=== PATIENT | male | born 1980 | race Caucasian/White ===

== ENCOUNTER 2017-11-03 08:45 | Emergency (ER) | payer OTHER, SELFPAY ==
--- NOTE | 2017-11-03 09:13 | HMH.EDUTC ---
[facility] [place] Disposition Clinical Impression: Bronchitis Disposition: Home, Self-Care Condition on Discharge: Good Instructions: DI for Acute Bronchitis Prescriptions: cephALEXin [Keflex 500mg Cap] 500 mg PO Q6H 10 Days #40 cap methylPREDNISolone [Medrol] 4 mg PO DIRECTED 6 Days #1 tab.ds.pk predniSONE [Prednisone 20mg Tab] 20 mg PO BID 5 Days #10 tab Albuterol Sulfate [Proair Hfa 90mcg/puff Inh] 2 puffs IH Q4HP PRN #1 inh PRN Reason: Shortness Of Breath Or Wheezing Time of Disposition: 09:23 Medical Decision Making - Medical Records Medical records reviewed: Yes: I reviewed the patient's medical records. - Yaya Inquiry Pt receiving controlled substance: No [facility] [place] HPI - General Stated complaint: cough congestion Time Seen by Provider: 11/03/17 09:09 Mode of Arrival: Ambulatory Source of Information: Patient Limitations: No Limitations HEENT Symptoms (Recalled from RN notes): Yes Resp Symptoms (Recalled from RN notes): Yes Skin Symptoms (Recalled from RN notes): No GI/ Symptoms (Recalled from RN notes): No MS Symptoms (Recalled from RN notes): No Card Symptoms (Recalled from RN notes): No Other (Recalled from RN notes): No - History of Present Illness Provider Complaint: Patient has had chest congestion and cough X 4-5 days. Gets similar illness every winter. No fever. Has tried Mucinex DM, Advil Cold and Sinus with some relief. Cough mostly non productive. Mild ear pain and sinus pressure and congestion. Losing voice. No vomiting or diarrhea. Onset (ago): day(s) (4-5) Location: head, chest Radiation: non-radiation Consistency: constant Relieving factors: medication Associated symptoms: cough, malaise Treatments prior to arrival: NSAID - Related Data Previous Rx's Medication Instructions Recorded Albuterol Sulfate [Proair Hfa 2 puffs IH Q4HP PRN #1 inh 11/03/17 90mcg/puff Inh] cephALEXin [Keflex 500mg Cap] 500 mg PO Q6H 10 Days #40 cap 11/03/17 methylPREDNISolone [Medrol] 4 mg PO DIRECTED 6 Days #1 11/03/17 tab.ds.pk predniSONE [Prednisone 20mg 20 mg PO BID 5 Days #10 tab 11/03/17 Tab] ROS Obtained: Yes All systems reviewed & no additional complaints - Constitutional Constitutional: Denies body ache, Denies chills, Denies fever(s) - ENT Ears, Nose, Mouth, and Throat: Reports sinus pressure, Reports sore throat - Respiratory Respiratory: Yes cough Physical Exam - General General appearance: alert, in no apparent distress - Head Head exam: atraumatic, normocephalic, normal inspection - Eye Eye exam: Present: normal appearance, PERRL, EOMI - ENT ENT exam: Present: normal exam, normal oropharynx, mucous membranes moist, TM's normal bilaterally, normal external ear exam - Neck Neck exam: Present: normal inspection, full ROM, trachea midline. Absent: meningismus, lymphadenopathy - Chest Chest inspection: Present: normal inspection, symmetric chest wall rise. Absent: tenderness - Respiratory Respiratory exam: Present: wheezes. Absent: respiratory distress - Cardiovascular Cardiovascular exam: Present: regular rate, normal rhythm. Absent: JVD - Abdominal Exam Abdominal exam: Present: soft, normal bowel sounds. Absent: distention, tenderness, guarding - Extremities Exam Extremities exam: Present: normal inspection, full ROM, normal capillary refill. Absent: calf tenderness - Back Exam Back exam: Present: normal inspection. Absent: tenderness - Neurological Exam Neurological exam: Present: alert, oriented X3 - Psychiatric Psychiatric exam: Present: normal affect, normal mood - Skin Skin exam: Present: warm, dry, intact, normal color - Lymphatic Lymphatic Findings: no adenopathy
--- NOTE | 2017-11-03 09:16 | ED_ITS ---
[facility] [place] Disposition Clinical Impression: Bronchitis Disposition: Home, Self-Care Condition on Discharge: Good Instructions: DI for Acute Bronchitis Prescriptions: cephALEXin [Keflex 500mg Cap] 500 mg PO Q6H 10 Days #40 cap methylPREDNISolone [Medrol] 4 mg PO DIRECTED 6 Days #1 tab.ds.pk predniSONE [Prednisone 20mg Tab] 20 mg PO BID 5 Days #10 tab Albuterol Sulfate [Proair Hfa 90mcg/puff Inh] 2 puffs IH Q4HP PRN #1 inh PRN Reason: Shortness Of Breath Or Wheezing Time of Disposition: 09:23 Medical Decision Making - Medical Records Medical records reviewed: Yes: I reviewed the patient's medical records. - Yaya Inquiry Pt receiving controlled substance: No [facility] [place] HPI - General Stated complaint: cough congestion Time Seen by Provider: 11/03/17 09:09 Mode of Arrival: Ambulatory Source of Information: Patient Limitations: No Limitations HEENT Symptoms (Recalled from RN notes): Yes Resp Symptoms (Recalled from RN notes): Yes Skin Symptoms (Recalled from RN notes): No GI/ Symptoms (Recalled from RN notes): No MS Symptoms (Recalled from RN notes): No Card Symptoms (Recalled from RN notes): No Other (Recalled from RN notes): No - History of Present Illness Provider Complaint: Patient has had chest congestion and cough X 4-5 days. Gets similar illness every winter. No fever. Has tried Mucinex DM, Advil Cold and Sinus with some relief. Cough mostly non productive. Mild ear pain and sinus pressure and congestion. Losing voice. No vomiting or diarrhea. Onset (ago): day(s) (4-5) Location: head, chest Radiation: non-radiation Consistency: constant Relieving factors: medication Associated symptoms: cough, malaise Treatments prior to arrival: NSAID - Related Data Previous Rx's Medication Instructions Recorded Albuterol Sulfate [Proair Hfa 2 puffs IH Q4HP PRN #1 inh 11/03/17 90mcg/puff Inh] cephALEXin [Keflex 500mg Cap] 500 mg PO Q6H 10 Days #40 cap 11/03/17 methylPREDNISolone [Medrol] 4 mg PO DIRECTED 6 Days #1 11/03/17 tab.ds.pk predniSONE [Prednisone 20mg 20 mg PO BID 5 Days #10 tab 11/03/17 Tab] ROS Obtained: Yes All systems reviewed & no additional complaints - Constitutional Constitutional: Denies body ache, Denies chills, Denies fever(s) - ENT Ears, Nose, Mouth, and Throat: Reports sinus pressure, Reports sore throat - Respiratory Respiratory: Yes cough Physical Exam - General General appearance: alert, in no apparent distress - Head Head exam: atraumatic, normocephalic, normal inspection - Eye Eye exam: Present: normal appearance, PERRL, EOMI - ENT ENT exam: Present: normal exam, normal oropharynx, mucous membranes moist, TM's normal bilaterally, normal external ear exam - Neck Neck exam: Present: normal inspection, full ROM, trachea midline. Absent: meningismus, lymphadenopathy - Chest Chest inspection: Present: normal inspection, symmetric chest wall rise. Absent : tenderness - Respiratory Respiratory exam: Present: wheezes. Absent: respiratory distress - Cardiovascular Cardiovascular exam: Present: regular rate, normal rhythm. Absent: JVD - Abdominal Exam Abdominal exam: Present: soft, normal bowel sounds. Absent: distention, tenderness, guarding - Extremities Exam Extremities exam: Present: normal inspection, full ROM, normal capillary refill. Absent: calf tenderness - Back Exam Back exam: Present: normal inspection. Absent: tendernes
[2017-11-03 09:18] VITALS: BP 128/86; PULSE 77; RESP 18; TEMP 36.8; O2SAT 99; BMI 23.2
[2017-11-03 09:43] VITALS: BP 128/86; PULSE 77; RESP 18; TEMP 36.8; O2SAT 99
== END 2017-11-03 09:44 | disposition home or self-care (01) ==
PROVIDERS: Emergency Provider Physician Assistant
DX: J20.9 Acute bronchitis, unspecified (principal)
CPT/HCPCS: 99202

== ENCOUNTER → 2017-11-28 10:25 | Outpatient (CLI) | payer OTHER, SELFPAY ==
[2017-11-28 11:04] LABS: CKMB Relative Index 0.3 U/L (0-4.0); Creatine Kinase 183 U/L (39-308); Creatine Kinase MB 0.6 mg/ml (0.0-3.6); Troponin I < 0.02 ng/ml (0.00-0.06)
[2017-11-28 12:36] LABS: Basophils % 0.5 % (0.1-2.0); Eosinophils # 0.1 K/mm3 (0.0-0.4); Hematocrit 47.7 % (42.0-52.0); Hemoglobin 15.6 g/dL (14.1-18.0); Lymphocytes # 1.1 K/mm3 (0.7-4.5); Mean Corpuscular HGB Conc 32.7 g/dL (31.8-35.4); Mean Corpuscular Hemoglobin 30.6 pg (27.0-31.2); Mean Corpuscular Volume 93.7 fl (80-94); Mean Platelet Volume 8.7 fl (7.4-10.4); Monocytes # 0.3 K/mm3 (0.1-1.0); Monocytes % 6.5 % (1.7-9.3); Neutrophils # 2.9 K/mm3 (1.8-7.8); Platelet Count 196 K/mm3 (142-424); Red Cell Distribution Width 12.5 % (11.5-17.5); White Blood Count 4.5 K/mm3 (4.8-10.8)
[2017-11-28 12:53] LABS: Anion Gap 12.4 mEq/L (5-15); Blood Urea Nitrogen 11 mg/dL (7-18); Carbon Dioxide 28 mmol/L (21.0-32.0); Chloride 101 mmol/L (98-107); Estimated Glomerular Filt Rate 84 ml/min (>60); Free Thyroxine Index 1.8 ug/dL (5.93-13.13); GFR (African American) 102 ML/MIN (>60); Glucose 99 mg/dL (74-106); Potassium 4.4 mmoL/L (3.5-5.1); Sodium 137 mmol/L (136-145); Thyroid Stimulating Hormone 1.51 uIU/ml (0.358-3.740); Triiodothryronine (T3) Uptake 36 % (31-39)
== END ==
PROVIDERS: PCP Internal Medicine Adolescent Medicine; Visit Provider Physician Assistant
DX: R07.9 Chest pain, unspecified (principal); R06.02 Shortness of breath; R06.00 Dyspnea, unspecified; R06.01 Orthopnea; R07.89 Other chest pain; R07.8 Other chest pain; R53.83 Other fatigue
CPT/HCPCS: 36415; 80048; 82550; 82553; 84436; 84443; 84479; 84484; 85025; 93225

== ENCOUNTER → 2017-12-06 13:35 | Outpatient (CLI) | payer OTHER, SELFPAY ==
--- NOTE | 2017-12-06 13:38 | CA_ITS ---
PROCEDURE: 2-D M-mode and color Doppler study INDICATIONS FOR THE TEST: Chest pain COPD Heart Murmur Tobacco Smoking PalpitationsX Fatigue Syncope Edema Hypertension Diabetes Mellitus Rheumatic Fever SOB FRAZIER Obesity Hyperlipidemia Family History HD Additional History PATIENT INFORMATION HEIGHT:70 WEIGHT:158 GENDER: Male B/P:135/93 2-D/M-MODE INTERPRETATION: 2-D MEASUREMENTS OBSERVED VALUES IN CMS Right Ventricular Dimension (RVDd) 2.3 Interventricular Septum (Thickness)(IVsd) .7 Left Ventricular Internal Dimensions(LVIDd) 4.9 Left Ventricular Posterior Wall (Thickness)(LVPWd) .9 Aortic Root 2.9 Aortic Cusp Separation 1.8 Left Atrial Dimensions (LAD) 3.3 2D 1. Left atrium is normal size, left ventricle is normal size, there is no concentric left ventricular hypertrophy, visually estimated ejection fraction of 55% with no obvious regional wall motion abnormality. 2. The right atrium and right ventricle are normal size and contractility. 3. The aortic, mitral, tricuspid and pulmonic valve are structurally normal. 4. No significant pericardial effusion noted. DOPPLER INTERROGATION: Doppler interrogation of the aortic, mitral and tricuspid valvular presence of trace mitral and tricuspid regurgitation of no hemodynamic significance, diastolic parameters are within normal range. CONCLUSION: 1. Normal left ventricular size, preserved left ventricular systolic function, visually estimated ejection fraction 55% with no obvious regional wall motion abnormality, diastolic parameters are within normal range. 2. Trace mitral and tricuspid regurgitation of no hemodynamic significance 3. No significant pericardial effusion noted.
== END ==
PROVIDERS: PCP Internal Medicine Adolescent Medicine; Visit Provider Internal Medicine
DX: R40.0 Somnolence (principal); G47.9 Sleep disorder, unspecified; R00.2 Palpitations; R06.83 Snoring; R07.89 Other chest pain; R06.02 Shortness of breath; R06.01 Orthopnea
CPT/HCPCS: 93306

== ENCOUNTER 2024-04-07 20:17 | Emergency (ER) | payer BC, SELFPAY ==
[2024-04-07 20:28] VITALS: BP 159/104; PULSE 83; RESP 16; TEMP 36.5; O2SAT 99; BMI 24.3
--- NOTE | 2024-04-07 20:38 | XR_ITS ---
PROCEDURE INFORMATION: Exam: XR Left Ankle Exam date and time: 04/07/2024 8:33 PM Age: 43 years old Clinical indication: Injury or trauma; Other: Stepped in a hole; Swelling (edema); Ankle; Left; Additional info: Inversion injury TECHNIQUE: Imaging protocol: Radiologic exam of the left ankle. Views: 3 or more views. COMPARISON: No relevant prior studies available. FINDINGS: Bones/joints: Minimally displaced transverse fracture of the distal fibula distal to the ankle mortise. Soft tissues: Moderate soft tissue swelling at the fracture site.. IMPRESSION: Minimally displaced transverse fracture of the distal fibula distal to the ankle mortise.
[2024-04-07] MEDS: IBUPROFEN 600 MG TABLET PO (20:49)
[2024-04-07] MEDS: ACETAMINOPHEN 500MG TAB 1000 MG PO (20:49)
--- NOTE | 2024-04-07 20:51 | PC.NURSE ---
Pt givene tylenol and ibuprofen. Pt is refusing the oxycodone at this time. and RN made aware. CR
--- NOTE | 2024-04-07 21:02 | ED_ITS ---
Discharge Plan Disposition Patient Disposition: Home, Self-Care Chief Complaint: Extremity Injury, Lower Prescriptions Prescriptions: No Action methylprednisolone [Medrol (Broderick)] 4 mg tablets,dose pack 4 mg PO PER PKG DIR 6 Days Qty: 21 0RF betamethasone valerate 0.1 % ointment 1 applic TOPICAL BID Qty: 180 1RF MG217 Psoriasis (salicylic ac) 3 % cream 1 applic TOPICAL BID Qty: 200 0RF Referrals Follow up/Referrals: Laurence Farr PA [Primary Care Provider] - See instructions Scott White DO [Staff Physician] - See instructions Activity Restrictions/Add. Instructions Additional Instructions/Restrictions: At this time it was felt you are safe to be discharged home. If new or worsening symptoms please do not hesitate to return the emergency department. For pain please take 1000 mg of Tylenol and 600 mg ibuprofen every 6 hours as needed, rest, ice, elevation, compression. Please use your crutches and toe- touch weightbearing of the left lower extremity. Keep your splint on until you see Dr. White. Please call and schedule appoint with Dr. White as soon as you are able. Clinical Impressions Clinical Impression: Closed left fibular fracture Discharge ED Provider: Scar Pelaez General Adult HPI General Chief complaint: Extremity Injury, Lower Stated complaint: AO 04/07/241944 injury left ankle Time Seen by Provider: 04/07/24 20:33 Mode of Arrival: Wheelchair Source of Information: Patient Limitations: No Limitations Description of Symptoms (Recalled from ER Triage Doc. by RN): Pt reported to ED via wheelchair with C/O of left ankle pain. Pt states he stepped in a hole when he heard a pop and then 10/10 pain that made him feel like he was going to pass out. pt states this happend approx 30-45 mins ago. Pt states pain is currently a 6 out of 10. History of Present Illness HPI narrative: Patient is a 43-year-old previous healthy male presents emergency department for evaluation of traumatic ankle injury. Patient was stepping off of a tractor when he stepped into a divot in the ground had an inversion injury of his left ankle with limited ability to bear weight and significant pain since. No other acute complaints. Related Data Previous Rx's Medication Instructions Recorded betamethasone valerate 0.1 % 1 applic topical BID #180 grams 06/08/21 topical ointment methylprednisolone 4 mg tablets in 4 mg PO PER PKG DIR 6 days #21 tabs 06/08/21 a dose pack (Medrol (Broderick)) salicylic acid 3 % topical cream 1 applic topical BID #200 grams 06/08/21 (MG217 Psoriasis (salicylic acid)) Allergies Allergy/AdvReac Type Severity Reaction Status Date / Time No Known Allergies Allergy Verified 06/08/21 10:24 [facility] Disclaimer: The information contained in this section may have been updated after the patient was seen, as this information can be updated by other users. Medical History (Updated 04/07/24 @ 21:35 by Scar Pelaez MD) Psoriasis Social History Smoking Status: Never smoker alcohol intake: current alcohol intake frequency: a few times a month substance use type: denies use current occupational status: employed Travel in the last 8 weeks: None ROS Obtained: Yes Systems reviewed as appropriate & no additional complaints except as documented Physical Exam General General appearance: alert and in no apparent distress Head Head exam: atraumatic and normocephalic Eye Eye exam: Present PERRL ENT ENT exam: Present mucous membranes moist Neck Neck exam: Present normal inspection Chest Chest inspection: Present normal inspection and symmetric chest wall rise Respiratory Respiratory exam: Absent respiratory distress Cardiovascular Cardiovascular exam: Present regular rate and normal rhythm Abdominal Exam Abdominal exam: Present soft Extremities Exam Extremities exam: Present other (Swollen left lateral malleolus. Palpable dorsal pedal pulse on the left. Significant tenderness over the ankle joint on the left. No tenderness over the mid rios or knee on the left.) Neurological Exam Neurological exam: Present alert Psychiatric Psychiatric exam: Present normal affect Skin Skin exam: Present warm and dry Medical Decision Making Yaya Inquiry Pt receiving controlled substance: No Vital Signs: 04/07/24 20:28 Temperature 97.7 F Temperature Source Temporal Artery Scan Pulse Rate [Left Radial] 83 Respiratory Rate 16 Blood Pressure [Right Arm] 159/104 H Blood Pressure Mean [Right Arm] 122 Blood Pressure Source [Right Arm] Automatic Cuff 02 Sat by Pulse Oximetry 99 Oxygen Delivery Method Room Air Orders (Tests/Meds): ED MEDICATIONS Discontinued Medications Generic Name Dose Route Start Last Admin Trade Name Freq PRN Reason Stop Dose Admin Acetaminophen 1,000 mg 04/07/24 20:38 04/07/24 20:49 Acetaminophen 500mg Tab PO 04/07/24 20:39 1,000 mg ONCE ONE Administration Ibuprofen 600 mg 04/07/24 20:38 04/07/24 20:49 Ibuprofen 600 Mg Tablet PO 04/07/24 20:39 600 mg ONCE ONE Administration Oxycodone HCl 5 mg 04/07/24 20:38 04/07/24 21:03 Oxycodone 5mg Immediate Release Tablet PO 04/07/24 20:39 Not Given ONCE ONE ORDERS Category Date Time Status Ankle XR - Left minimum 3 Views [XR ankle LT min 3V] Exams 04/07/24 20:38 Completed Stat Medical Decision Narrative: In summary patient is a 43-year-old male with past medical history described above who presents emergency department for evaluation of traumatic injury sustained to his left ankle. Patient is hemodynamically stable nontoxic- appearing upon arrival, afebrile. Based on history and physical exam limited trauma survey will be conducted plain film left ankle as differential includes ligamentous injury versus fracture. Initial interventions include Tylenol and ibuprofen. Patient wishes to defer oxycodone at this point. X-ray informally interpreted by me at bedside, it appears there is an isolated distal left fibular fracture. Formal read shows minimally displaced transverse fracture of the distal fibula distal to the ankle mortise. Case discussed with Dr. Whiet regarding management, patient will be modified weightbearing and given significant swelling will be patient in a posterior short slab and will given crutches and toe-touch weightbearing. Patient was splinted and post splint capillary refill was acceptable. Patient is appropriate for discharge at this time we will follow-up on an outpatient basis with Dr. White Procedure: Procedure performed was short posterior splint of the left lower extremity. Procedure performed by splint tech under my supervision. Patient was put in a posterior short slab splint fabricated with Ortho-Glass. Post splinting capillary refill normal. Patient tolerated the procedure well. There were no immediate complications. Critical Care Critical Care Time Critical Care Time: No
--- NOTE | 2024-04-07 21:52 | PC.NURSE ---
Pt placed in long posterior splint on the left leg. Ptt given instructions on care and taught how to use the crutches. Pt comprehends directions. CR
[2024-04-07 21:53] VITALS: BP 132/89; PULSE 83; RESP 16; TEMP 36.5; O2SAT 95
== END 2024-04-07 21:57 | disposition home or self-care (01) ==
PROVIDERS: Emergency Provider Emergency Medicine; PCP Physician Assistant
DX: S82.422A Displaced transverse fracture of shaft of left fibula, initial encounter for closed fracture (principal); W18.42XA Slipping, tripping and stumbling without falling due to stepping into hole or opening, initial encounter; M25.572 Pain in left ankle and joints of left foot
CPT/HCPCS: 29515; 73610; 99283

== ENCOUNTER 2024-04-28 08:52 | Outpatient (CLI) | payer BC, SELFPAY ==
--- NOTE | 2024-04-28 09:08 | XR_ITS ---
FINAL REPORT CLINICAL HISTORY: left ankle pain f/u fracture COMPARISON: None FINDINGS: LEFT ANKLE: Three views of the left ankle were obtained. There is a transverse fracture of the inferior lateral malleolus with 2 mm of distraction. The joint spaces and mortise are intact. Lateral soft tissue swelling is present. IMPRESSION: Transverse fracture of the inferior lateral malleolus with 2 mm of distraction. Reviewed, Interpreted and Dictated by Chapincito Cook III, MD Transcribed by Maggie Lara Authenticated and [facility]
== END 2024-04-28 23:59 | disposition home or self-care (01) ==
LOC: RAD 08:53
PROVIDERS: PCP Physician Assistant; Visit Provider Orthopaedic Surgery
DX: M25.572 Pain in left ankle and joints of left foot (principal)
CPT/HCPCS: 73610

== ENCOUNTER 2024-05-19 08:41 | Outpatient (CLI) | payer BC, SELFPAY ==
--- NOTE | 2024-05-19 08:45 | XR_ITS ---
FINAL REPORT CLINICAL HISTORY: lt ankle fx COMPARISON: 04/28/2024. FINDINGS: LEFT ANKLE Three views demonstrate a transverse fracture of the inferior lateral malleolus, without change in alignment or position of the fracture fragment since the prior exam of 04/28/2024.. The visualized joint spaces are normally aligned. The soft tissues are unremarkable. No definite callus formation is identified. A moderate joint effusion is present. IMPRESSION: Transverse fracture inferior aspect of the lateral malleolus, no significant change in appearance since the prior exam of 04/28/2024. Moderate joint effusion. Reviewed, Interpreted and Dictated by Curtis Archibald MD Transcribed by Maggie Lara Authenticated and [facility]
== END 2024-05-19 23:59 | disposition home or self-care (01) ==
LOC: RAD 08:42
PROVIDERS: PCP Physician Assistant; Visit Provider Orthopaedic Surgery
DX: M25.572 Pain in left ankle and joints of left foot (principal)
CPT/HCPCS: 73610

== ENCOUNTER 2024-06-09 08:53 | Outpatient (CLI) | payer BC, SELFPAY ==
--- NOTE | 2024-06-09 09:00 | XR_ITS ---
FINAL REPORT CLINICAL HISTORY: Left ankle fx COMPARISON: 05/19/2024 FINDINGS: AP, oblique, and lateral views of the left ankle were obtained. Again noted is a fracture of the tip of the lateral malleolus. There has been essentially no interval callus formation. No new fracture is identified. The ankle mortise is intact. Soft tissue edema has improved. IMPRESSION: Lateral malleolar fracture with no interval callus formation. Improved soft tissue edema. Reviewed, Interpreted and Dictated by Sofi Huber MD Transcribed by Gale Kern Authenticated and [facility]
== END 2024-06-09 23:59 | disposition home or self-care (01) ==
LOC: RAD 08:54
PROVIDERS: PCP Physician Assistant; Visit Provider Orthopaedic Surgery
DX: M25.572 Pain in left ankle and joints of left foot (principal)
CPT/HCPCS: 73610

== ENCOUNTER 2024-07-07 08:59 | Outpatient (CLI) | payer BC, SELFPAY ==
--- NOTE | 2024-07-07 09:03 | XR_ITS ---
FINAL REPORT CLINICAL HISTORY: left ankle fx COMPARISON: 06/09/2024 FINDINGS: LEFT ANKLE 3 views of the left ankle were obtained. There is a transverse lucency through the inferior portion of the lateral malleolus consistent with a mildly displaced fracture, which appears similar to the previous exam. No bridging callus formation is seen. The mortise is intact. Soft tissues are unremarkable. IMPRESSION: Mildly displaced fracture of the lateral malleolus, similar to previous exam. Reviewed, Interpreted and Dictated by Curtis Archibald MD Transcribed by Ghada Lamar Authenticated and [facility]
== END 2024-07-07 23:59 | disposition home or self-care (01) ==
LOC: RAD 09:00
PROVIDERS: PCP Physician Assistant; Visit Provider Physician Assistant
DX: M25.572 Pain in left ankle and joints of left foot (principal); S82.832A Other fracture of upper and lower end of left fibula, initial encounter for closed fracture
CPT/HCPCS: 73610

== ENCOUNTER 2025-06-19 08:20 | Emergency (ER) | payer OTHER, SELFPAY ==
[2025-06-19] VITALS (8 sets, daily range): BP systolic 138–192; BP diastolic 92–117; PULSE 71–93; RESP 12–22; TEMP 36.7–36.8; O2SAT 96–99; BMI 25.1
--- NOTE | 2025-06-19 08:29 | ECG_ITS ---
APPROVED REPORT Exam: Resting ECG HR:80 bpm ECG Measurements Heart Rate 80 AXES NV 155 P 62 QRSd 85 QRS 69 QT 360 T 65 QTc 396 Conclusion Normal sinus rhythm Normal axis Normal intervals No STEMI Electronically signed by : Julian Rubio, 06/19/2025 16:26:31
--- NOTE | 2025-06-19 08:35 | PC.NURSE ---
FSBS is 82
--- NOTE | 2025-06-19 08:41 | XR_ITS ---
FINAL REPORT CLINICAL HISTORY: Nonspecific chest pain COMPARISON: None FINDINGS: CHEST 1 VIEW The heart size is normal. The mediastinum is normal. There is no focal infiltrate or edema. There are no pleural effusions. There is no pneumothorax. There is no osseous abnormality. IMPRESSION: No acute cardiopulmonary process Reviewed, Interpreted and Dictated by Curtis Archibald MD Transcribed by Ghada Lamar Authenticated and [facility]
--- NOTE | 2025-06-19 08:46 | CT_ITS ---
FINAL REPORT TECHNIQUE: Thin section axial images were obtained from the lung apices through the upper abdomen without contrast. This study was performed with techniques to keep radiation doses as low as reasonably achievable (ALARA). Individualized dose reduction techniques using automated exposure control or adjustment of mA and/or kV according to the patient's size were employed. CLINICAL HISTORY: Chest trauma. pain around right clavicle. COMPARISON: None FINDINGS: There is no mediastinal, hilar, or axillary lymphadenopathy. No pleural or pericardial effusion. There is evidence of prior granulomatous disease. The lungs are otherwise clear. Limited, unenhanced evaluation of the upper abdomen is without acute abnormality. There is fatty infiltration of the liver. There is no acute osseous abnormality. Specifically, no right clavicular fracture. IMPRESSION: No acute intrathoracic abnormality. Reviewed, Interpreted and Dictated by Sofi Huber MD Transcribed by Gale Kern Authenticated and [facility]
[2025-06-19 08:48] LABS: Hematocrit 45.3 % (42.0-52.0); Hemoglobin 15.8 g/dL (14.1-18.0); Immature Granulocytes % 0.3 %; Mean Corpuscular HGB Conc 34.9 g/dL (31.8-35.4); Mean Corpuscular Hemoglobin 32.7 pg (27.0-31.2); Mean Corpuscular Volume 93.8 fl (80-94); Nucleated Red Blood Cells % 0 %; Platelet Count 175 K/mm3 (142-424); Red Blood Count 4.83 M/mm3 (4.60-6.20); Red Cell Distribution Width-SD 43.3 fL; White Blood Count 6.9 K/mm3 (4.8-10.8)
[2025-06-19 08:56] LABS: Alanine Aminotransferase 111 U/L (12-78); Albumin Level 5.0 g/dl (3.5-5.0); Albumin/Globulin Ratio 1.6 (1.1-1.8); Alkaline Phosphatase 70 U/L (38-126); Anion Gap 16.0 mEq/L (5-15); Aspartate Amino Transferase 114 U/L (17-59); Bilirubin,Total 0.8 mg/dl (0.2-1.3); Blood Urea Nitrogen 7 mg/dl (9-20); Calcium 9.1 mg/dl (8.4-10.2); Carbon Dioxide 25 mmol/L (22.0-30.0); Chloride 101 mmol/L (98-107); Creatinine Clearance Estimated 131 mL/min (50-200); Creatinine,Serum 0.80 mg/dl (0.66-1.25); Estimated Glomerular Filt Rate 105 ml/min (>60); GFR (African American) 126 ML/MIN (>60); Globulin 3.1 g/dL (1.3-3.2); Glucose 87 mg/dl (74-100); Potassium 4.0 mmoL/L (3.5-5.1); Sodium 138 mmol/L (136-145); Total Protein,Serum 8.1 g/dl (6.3-8.2)
[2025-06-19 09:08] LABS: Troponin I < 0.01 ng/ml (0.00-0.034)
--- NOTE | 2025-06-19 09:09 | PC.NURSE ---
pt going for ultrasound at this time via wheelchair
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
[2025-06-19 10:11] LABS: Hepatitis C Ab Qual. W/ RFX NEGATIVE (Negative)
--- NOTE | 2025-06-19 11:02 | PC.NURSE ---
pt able to pull 2000 on incentive spirometer
== END 2025-06-19 11:30 | disposition home or self-care (01) ==
PROVIDERS: Emergency Provider Student in an Organized Health Care Education/Training Program; PCP Physician Assistant
DX: S20.211A Contusion of right front wall of thorax, initial encounter (principal); R07.1 Chest pain on breathing; R06.02 Shortness of breath; W22.8XXA Striking against or struck by other objects, initial encounter
CPT/HCPCS: 71045; 71250; 80053; 84484; 85025; 86803; 87389; 93005; 99285